=== PATIENT | female | born 1955 | race Caucasian/White ===

== ENCOUNTER 2018-03-10 16:33 | Emergency (ER) | payer MEDICAID, SELFPAY ==
[2018-03-10] VITALS (14 sets, daily range): BP systolic 150–162; BP diastolic 64–83; PULSE 66–70; RESP 16; TEMP 36–36.6; O2SAT 93–97
[2018-03-10] MEDS: Tranexamic Acid 1,000 MG/10 ML VIAL 1000 MG (16:45)
--- NOTE | 2018-03-10 16:48 | ED.GENADUL_ITS ---
Discharge Plan Disposition Patient Disposition: HOME Condition: Good Discharge Details Chief Complaint: Vascular Clinical Impression: Bleeding pseudoaneurysm of left brachiocephalic arteriovenous fistula Reason For Visit: FIONA Primary Care Provider: NONE,NONE ED Provider: Leonidas Liu Home Meds and New Rx's Prescriptions: No Action amlodipine 10 MG tablet 10 mg PO DAILY RF: 0 metoprolol succinate 25 MG tablet extended release 24 hr 25 mg PO DAILY RF: 0 Sodium Bicarbonate in D5w [Sodium Bicrb 150 Meq/1,150-D5w] 150 MEQ/1,150 ML Plast..Bag RF: 0 Discharge Instructions Instructions: Postoperative Bleeding (ED) Additional Instructions: If you notice any return of your bleeding please apply light pressure and return to the ER immediately for reevaluation. If you notice any worsening of your symptoms, or any new symptoms such as vomiting, diarrhea, fever, chills, shortness of breath, chest pain, numbness, weakness, or fainting , please return immediately to the emergency department for reevaluation. Please follow up with your primary care provider as soon as possible for reassessment and reevaluation. As always, it was a pleasure participating in your medical care today. Medical Decision Making This is a 63-year-old female who presents for bleeding AV fistula postdialysis. She had a tourniquet device applied roughly 30 minutes prior to arrival. Soon as the patient came we did remove the tourniquet device right away, no bleeding was noted. A small cotton swab with TXA was placed over the initial injection site. No significant pressure dressing was applied. We will get a basic laboratory workup to confirm that the patient's hemoglobin is stable , defer bleeding does not return she can be discharged home with close follow- up. Patient's laboratory workup has returned relatively benign, however she does have a slightly low hemoglobin at 8.6. She is asymptomatic with no tachycardia , significant pallor, or other complaints. Review of the patient's most recent laboratory workup from less than 2 weeks ago from her dialysis center reveals a hemoglobin of 7.4. Clearly she has actually improved and her hemoglobin levels and not decreased. I feel she can be safely discharged home with close follow- up. We discussed red flags which to return the patient understands. I have extensively reviewed the treatment plan and discharge instructions with the patient. I have addressed all patient concerns at this time. The patient was made aware of what symptoms to monitor for that would warrant a return to the emergency department. Discussed the plan with the patient, they demonstrate verbal understanding and agreement with our assessment and plan at this time. HPI General Date/Time Provider Initiated Documentation: 03/10/18 16:42 . HPI Narrative: This is a 63-year-old female with a past medical history of diabetes, and renal failure secondary to the diabetes on dialysis. She did have brain surgery years ago as well. She presents today with a complication from dialysis. She has left-sided AV fistula, and after dialysis she had some mild leaking from her AV fistula. It occurred for roughly 1 hour total after dialysis. A tourniquet device was placed by the dialysis clinic on her arm 30 minutes prior to arrival she was brought up here for further evaluation. Upon arrival the tourniquet device was removed and no bleeding is present. She did finish her dialysis. She is not on any blood thinners. She denies any lightheadedness, numbness tingling or weakness. She has no other complaints at this time. Related Data Home Medications Medication Instructions Recorded Confirmed Sodium Bicarbonate in D5w [Sodium 10/20/17 Bicrb 150 Meq/1,150-D5w] amlodipine 10 mg PO DAILY 10/20/17 10/20/17 metoprolol succinate 25 mg PO DAILY 10/20/17 10/20/17 Allergies Allergy/AdvReac Type Severity Reaction Status Date / Time No Known Allergies Allergy Unverified 10/20/17 12:04 General Stated Complaint: Vascular KAREN: 3 Review of Systems Review of Systems All systems reviewed & are unremarkable except as noted in HPI and below PFSH Social History Smoking/Tobacco Use Status: Current every day Exam Narrative Exam Narrative: 1.Const: Well-nourished, Well-developed, appearing stated age 2.Eyes: PERRL, no conjunctival injection, and symmetrical lids. 3.ENT: Atraumatic external nose and ears. Moist MM. Neck: Symmetric, trachea midline, No thyromegaly. 4.CVS: +S1/S2, No murmurs or gallops. Peripheral pulses 2+ and equal in all extremities. Brisk capillary refill in all extremities. 5.RESP: Unlabored respiratory effort. Clear to auscultation bilaterally. No wheezes rales or rhonchi 6.GI: Soft, Nontender/Nondistended, No hepatosplenomegaly. No guarding or rebound. 7.MSK: Normocephalic/Atraumatic, Extremities w/o deformity or ttp No cyanosis or clubbing, Normal movement of all extremities. Patient demonstrates a left- sided AV fistula. Tourniquet/pressure device was immediately removed, no bleeding is present. Injection site is present however there is no active bleeding or hematoma. Palpable thrill noted throughout the entire AV fistula. Distally to the fistula she demonstrates brisk capillary refill, normal radial and ulnar pulse at +2. No significant tenderness or abnormality. 8.Skin: Warm, Dry. No rashes or lesions. 9.Neuro: verification specialist II-XII grossly intact. Sensation grossly intact, no focal neurologic deficits. 10.Psych: (AAO) x3. Appropriate mood and affect Course Vital Signs Temperature 36 C L 03/10/18 16:34 Pulse 70 03/10/18 16:34 Respiratory Rate 16 03/10/18 16:34 Blood Pressure 150/83 H 03/10/18 16:34 Pulse Oximetry 95 03/10/18 16:34 Temperature 36 C L 03/10/18 16:34 Temperature Source Skin 03/10/18 16:34 Pulse 70 03/10/18 16:34 Respiratory Rate 16 03/10/18 16:34 Respiratory Effort 03/10/18 16:39 Blood Pressure 150/83 H 03/10/18 16:34 Blood Pressure Position Sitting 03/10/18 16:34 Pulse Oximetry 95 03/10/18 16:34 Oxygen Delivery Method Room Air 03/10/18 16:34 Oxygen Flow Rate 0 03/10/18 16:34
[2018-03-10 16:54] LABS: Abs Immature Grans 0.01 k/cumm (0.0-0.09); Absolute Basophil Count 0.04 k/cumm (0.0-0.2); Absolute Eosinophil Count 0.05 k/cumm (0.0-0.7); Absolute Lymphocyte Count 2.25 k/cumm (1.2-3.4); Absolute Monocyte Count 0.43 k/cumm (0.11-0.7); Absolute Neutrophil Count 2.53 k/cumm (1.2-6.7); Basophils % 0.8; Eosinophils % 0.9; HCT 27.5 % (36.0-46.0); HGB 8.6 g/dL (12.0-15.5); Immature Grans % 0.2; Lymphocytes % 42.4; Mean Corp. HGB Concentration 31.3 g/dL (32.0-36.0); Mean Corpuscular Hemoglobin 29.5 pg (27.0-33.0); Mean Corpuscular Volume 94.2 fL (80-95); Mean Platelet Volume 9.9 fL (8.0-11.0); Monocytes % 8.1; Neutrophils % 47.6; Platelet Count 217 x1000/uL (130-400); RBC 2.92 m/cumm (4.00-5.20); RBC Distribution Width 16.6 % (11.7-14.6); White Blood Cell Count 5.31 k/cumm (4.4-10.8)
[2018-03-10] MEDS: Gelatin SPONGE 12-7 MM PKT 1 EACH TP (17:08)
[2018-03-10 17:11] LABS: ALT 48 U/L (12-78); AST 22 U/L (15-37); Albumin 3.2 g/dL (3.4-5.0); Alkaline Phosphatase 87 U/L (46-116); Anion Gap 1.3 mmol/L (3-11); BUN 15 mg/dL (7-18); Bilirubin, Total 0.7 mg/dL (0.2-1.0); CO2 36.7 mmol/L (21.0-32.0); CREATININE 2.03 mg/dL (0.55-1.02); Calcium 8.6 mg/dL (8.5-10.1); Chloride 99 mmol/L (98-107); Estimated GFR 24.74 (mL/min/1.73m2); Glucose 119 mg/dL (70-100); Sodium 137 mmol/L (136-145); Total Protein 6.6 g/dL (6.4-8.2)
[2018-03-10 17:20] LABS: INR 1.1 (1.0-3.5); PTT Activated 22.4 sec (21.0-31.4); Prothrombin Time 10.3 sec (9.3-10.8)
== END 2018-03-10 17:45 | disposition home or self-care (01) ==
PROVIDERS: Emergency Provider Student in an Organized Health Care Education/Training Program
DX: T82.530A Leakage of surgically created arteriovenous fistula, initial encounter (principal); Y84.1 Kidney dialysis as the cause of abnormal reaction of the patient, or of later complication, without mention of misadventure at the time of the procedure; Z99.2 Dependence on renal dialysis; E11.22 Type 2 diabetes mellitus with diabetic chronic kidney disease; N18.6 End stage renal disease; I12.0 Hypertensive chronic kidney disease with stage 5 chronic kidney disease or end stage renal disease
CPT/HCPCS: 80053; 99283; 85025; 85610; 85730

== ENCOUNTER 2018-07-18 11:47 | Emergency (ER) | payer MEDICAID, SELFPAY ==
[2018-07-18] VITALS (14 sets, daily range): BP systolic 157–165; BP diastolic 83–92; PULSE 74–81; RESP 14–25; TEMP 36; O2SAT 95–98
--- NOTE | 2018-07-18 11:51 | DI.CT_ITS ---
SYMPTOM/DIAGNOSIS: FALL, HIT HEAD, HO ANEURYSM CTA HEAD AND NECK: CT angiography was performed with multi slice acquisition and multi planar and 3D reconstruction. CTA neck: There are no priors for comparison. There is a moderate size right and large left pleural effusion noted. The visualized lung brown are otherwise clear. The common carotid arteries are patent. No evidence of significant stenosis, dissection or occlusion. The external carotid arteries are unremarkable without evidence of occlusion, dissection or significant stenosis. There is mild atherosclerosis seen in the origins of both internal carotid arteries but no evidence of occlusion or dissection seen. No significant stenosis is present. The vertebral arteries are patent. The right vertebral artery appears dominant. No evidence of dissection or occlusion is seen. No significant stenosis is present. IMPRESSION: 1. No significant arterial stenosis or occlusion. 2. Bilateral pleural effusions with a moderate right and large left effusion present. CTA HEAD: CT angiography was performed with multi slice acquisition and multi planar and 3D reconstruction. There is atherosclerosis of the intracranial portion of the internal carotid artery but no occlusion or aneurysm is seen. No significant stenosis is present. On the left the anterior cerebral artery, middle cerebral artery and posterior cerebral artery all appear patent without evidence of aneurysm, occlusion or significant stenosis. There is streak artifact from the right sided aneurysm clips. The right anterior cerebral, middle cerebral and posterior cerebral arteries appear patent. The vertebral arteries are patent without evidence of dissection, aneurysm or significant stenosis. No occlusion is seen. The right vertebral artery is dominant. The basilar artery appears grossly unremarkable. IMPRESSION: 1. Right sided aneurysm clips with prominent streak artifact. 2. No significant stenosis or occlusion.
--- NOTE | 2018-07-18 11:51 | DI.CT_ITS ---
SYMPTOM/DIAGNOSIS: FALL, HIT HEAD, H/O ANEURYSM CT BRAIN: Noncontrast. No priors. There are right sided aneurysm clips with prominent streak artifact present. There is cerebral atrophy. Areas of decreased attenuation are seen in the white matter consistent with small vessel ischemic disease. The ventricles are intact. The basilar cisterns are patent. There is no acute midline shift of mass effect. No intracranial hemorrhage is seen. There are findings of a prior right craniotomy. No skull fracture is identified. The visualized paranasal sinuses are clear. The mastoid air cells are well pneumatized. IMPRESSION: No acute intracranial process 2. Right sided aneurysm clips with streak artifact.
--- NOTE | 2018-07-18 11:55 | ED.GENADUL_ITS ---
Discharge Plan Disposition Patient Disposition: HOME Condition: Good Discharge Details Chief Complaint: Trauma Clinical Impression: Fall Reason For Visit: FIONA Primary Care Provider: None,None ED Provider: Leonidas Liu Home Meds and New Rx's Prescriptions: No Action amlodipine 10 MG tablet 10 mg PO DAILY RF: 0 metoprolol succinate 25 MG tablet extended release 24 hr 25 mg PO DAILY RF: 0 Sodium Bicarbonate in D5w [Sodium Bicrb 150 Meq/1,150-D5w] 150 MEQ/1,150 ML Plast..Bag RF: 0 Discharge Instructions Instructions: Fall Prevention (ED) Additional Instructions: If you notice any worsening of your symptoms, or any new symptoms such as vomiting, diarrhea, fever, chills, shortness of breath, chest pain, numbness, weakness, or fainting , please return immediately to the emergency department for reevaluation. Please follow up with your primary care provider as soon as possible for reassessment and reevaluation. As always, it was a pleasure participating in your medical care today. Medical Decision Making This is a pleasant 63-year-old female who presents for evaluation after a fall. She was walking to dialysis when she slipped and hit the back of her head. She denies loss of consciousness. Physical exam shows no signs of trauma, no neurologic abnormalities. She does have minimal C4 and C5 midline spinal tenderness but more so paraspinal tenderness bilaterally. No signs of neurologic deficit, no step-off sign in the midline, or other abnormalities. Fistula is intact, with a palpable thrill. We will get a CT scan of the head neck including a CT angios the head neck for evaluation of acute fracture or ble ed. I feel bleed is unlikely based on her current clinical disposition however because of her history and risk factors we will evaluate for this. CT head neck and CT angiogram negative for any acute process, bleed, or fracture. Patient is feeling well and is asked over 7 times if she can go at this point. I feel that this is appropriate. Repeat neurologic exam is normal and shows no significant abnormalities. Patient will be discharged back to dialysis for the remainder of dialysis. We discussed red flags which to return she understands I have extensively reviewed the treatment plan and discharge instructions with the patient. I have addressed all patient concerns at this time. The patient was made aware of what symptoms to monitor for that would warrant a return to the emergency department. Discussed the plan with the patient, they demonstrate verbal understanding and agreement with our assessment and plan at this time. FINDINGS: Brain: Central and cortical brain atrophy evident, appropriate for patient age. There is nonspecific periventricular low attenuation, likely microangiopathic disease. No acute intracranial hemorrhage. Ventricles: Normal. No ventriculomegaly. Bones/joints: Right temporal craniotomy. Sinuses: Visualized sinuses are unremarkable. No acute sinusitis. Mastoid air cells: Visualized mastoid air cells are unremarkable. No mastoid effusion. Soft tissues: Unremarkable. Vasculature: Right-sided aneurysm clips with prominent streak artifact. IMPRESSION: 1. No acute intracranial abnormality. 2. Right-sided aneurysm clips with prominent streak artifact. FINDINGS: Right internal carotid artery: Unremarkable. Intracranial segment is patent with no significant stenosis. No aneurysm. Right anterior cerebral artery: Numerous right-sided aneurysm clips with prominent streak artifact. Right MCA appears patent. Right middle cerebral artery: See Right Anterior Cerebral Artery Finding. Right posterior cerebral artery: Unremarkable. No occlusion or significant stenosis. No aneurysm. Right vertebral artery: Unremarkable. No occlusion or significant stenosis. No aneurysm. Left internal carotid artery: Unremarkable. Intracranial segment is patent with no significant stenosis. No aneurysm. Left anterior cerebral artery: Unremarkable. No occlusion or significant stenosis. No aneurysm. Left middle cerebral artery: Unremarkable. No occlusion or significant stenosis. No aneurysm. Left posterior cerebral artery: Unremarkable. No occlusion or significant stenosis. No aneurysm. Left vertebral artery: Unremarkable. No occlusion or significant stenosis. No aneurysm. Basilar artery: Unremarkable. No occlusion or significant stenosis. No aneurysm. IMPRESSION: 1. Numerous right-sided aneurysm clips with prominent streak artifact. Right MCA appears patent. 2. No significant stenosis or occlusion. FINDINGS: VASCULATURE: Right common carotid artery: Normal. No significant stenosis. No dissection or occlusion. Right internal carotid artery: Normal. Extracranial segment is patent with no significant stenosis. No dissection or occlusion. Right external carotid artery: Normal. No occlusion or significant stenosis. Right vertebral artery: Right vertebral artery dominant. Left common carotid artery: Normal. No significant stenosis. No dissection or occlusion. Left internal carotid artery: Normal. Extracranial segment is patent with no significant stenosis. No dissection or occlusion. Left external carotid artery: Normal. No occlusion or significant stenosis. Left vertebral artery: Normal. No significant stenosis. No dissection or occlusion. NECK: Bones/joints: No acute fracture. Soft tissues: Normal. No significant soft tissue swelling. Lungs: Moderate right and large left pleural effusions. IMPRESSION: 1. Moderate right and large left pleural effusions. 2. No significant stenosis or occlusion. COMMENT: Reference per NASCET criteria for degree of stenosis: Mild: <50% stenosis. Moderate: 50-69% stenosis. Severe: 70-94% stenosis. Near occlusion: 95-99% stenosis. Thank you for allowing us to participate in the care of your patient. Dictated and Authenticated by: Marlene Darnell MD [facility] General Date/Time Provider Initiated Documentation: 07/18/18 11:50 . HPI Narrative: This is a 63-year-old female with a past medical history of diabetes, renal failure on dialysis, as well as a brain aneurysm and surgery for this in the past. She presents today after a fall. She was on her way down to dialysis when she slipped on the ice and hit the back of her head. She denies loss of consciousness, she recalls the event. She does have some mild pain in her posterior occiput, as well as the back of her neck she denies any numbness, tingling, weakness, vision changes,. Nausea, vomiting or diarrhea. She is not on any blood thinners. She denies any other complaints or modifying factors at this time Related Data Home Medications Medication Instructions Recorded Confirmed Sodium Bicarbonate in D5w [Sodium 10/20/17 Bicrb 150 Meq/1,150-D5w] amlodipine 10 mg PO DAILY 10/20/17 07/18/18 metoprolol succinate 25 mg PO DAILY 10/20/17 07/18/18 Allergies Allergy/AdvReac Type Severity Reaction Status Date / Time No Known Allergies Allergy Unverified 07/18/18 12:06 General KAREN: 3 Review of Systems Review of Systems All systems reviewed & are unremarkable except as noted in HPI and below PFSH Social History Smoking and Tabacco status: Current every day Exam Narrative Exam Narrative: 1.Const: Well-nourished, Well-developed, appearing stated age 2.Eyes: PERRL, no conjunctival injection, and symmetrical lids. 3.ENT: Atraumatic external nose and ears. Moist MM. Neck: Symmetric, trachea midline, No thyromegaly. Patient demonstrates intact dentition with no signs of tooth avulsion or fracture, no signs of jaw deformity, no evidence of a LeFort's fracture, with an intact palate, nose and orbital region. There is no evidence of a nasal septal hematoma. No proptosis. Jaw closes symmetrically. Airway is clear. There is no evidence of raccoon eyes, decker sign, CSF rhinorrhea, mastoid tenderness, cranial crepitus, hemotympanum, exophthalmos, or hyphema. 4.CVS: +S1/S2, No murmurs or gallops. Peripheral pulses 2+ and equal in all extremities. Brisk capillary refill in all extremities. 5.RESP: Unlabored respiratory effort. Clear to auscultation bilaterally. No wheezes rales or rhonchi 6.GI: Soft, Nontender/Nondistended, No hepatosplenomegaly. No guarding or rebound. 7.MSK: Normocephalic/Atraumatic, Extremities w/o deformity or ttp No cyanosis or clubbing, Normal movement of all extremities. No midline tenderness to palpation over the TLS spine. Minimal midline tenderness over C4 and C5, however more so paraspinal tenderness bilaterally over these areas. Normal ROM in flexion, extension, side bend, and rotation. Patient has +5 out of 5 strength in the lower extremities in dorsiflexion and plantarflexion, knee flexion and extension, hip flexion and extension. There is +2 over 2 dorsalis pedis pulses bilaterally. There is normal sensation to the skin with light touch at the foot, knee, and hip. Normal saddle sensation. Good sensation over the deep sural nerve area bilaterally. Rectal exam deferred. Reflexes are +2 over 4 in the patellar reflex bilaterally. +5 out of 5 strength in the medial, ulnar, radial nerve distribution bilaterally in the hands as well as intact light touch sensation to these dermatomes on the hands 8.Skin: Warm, Dry. No rashes or lesions. 9.Neuro: freight engineer II-XII grossly intact. Sensation grossly intact, no focal neurologic deficits. All 6 cardinal planes of vision are fully intact. No evidence of rotatory or vertical nystagmus. The patient demonstrated a normal [id number], good dexterity. There was no evidence of dysdiadochokinesia. Patient was able to ambulate without difficulty. There was no wide-based gait. Romberg, and [id number] are both normal on testing. Sensation was intact bilaterally as well as muscle strength bilaterally for all extremities. Patient was able to verbalize butter cup with no slurring, or miss pronunciation. 10.Psych: (AAO) x3. Appropriate mood and affect
[2018-07-18 12:07] LABS: Abs Immature Grans 0.03 k/cumm (0.0-0.09); Absolute Basophil Count 0.03 k/cumm (0.0-0.2); Absolute Eosinophil Count 0.05 k/cumm (0.0-0.7); Absolute Lymphocyte Count 1.08 k/cumm (1.2-3.4); Absolute Monocyte Count 0.48 k/cumm (0.11-0.7); Basophils % 0.4; Eosinophils % 0.7; HCT 34.6 % (36.0-46.0); HGB 10.9 g/dL (12.0-15.5); Immature Grans % 0.4; Lymphocytes % 15.1; Mean Corp. HGB Concentration 31.5 g/dL (32.0-36.0); Mean Corpuscular Hemoglobin 29.6 pg (27.0-33.0); Mean Platelet Volume 9.1 fL (8.0-11.0); Monocytes % 6.7; Neutrophils % 76.7; Platelet Count 179 x1000/uL (130-400); RBC 3.68 m/cumm (4.00-5.20); RBC Distribution Width 20.4 % (11.7-14.6); White Blood Cell Count 7.17 k/cumm (4.4-10.8)
[2018-07-18 12:23] LABS: PTT Activated 22.5 sec (21.0-31.4); Prothrombin Time 10.4 sec (9.3-11.0)
[2018-07-18 12:40] LABS: Diff Comment RBC Morph Reviewed; Macrocytosis 1+; Microcytosis 1+
[2018-07-18] MEDS: Omnipaque 350 MG/ML 100 ML BTL IJ ×2 (12:42→12:43)
[2018-07-18] MEDS: Normal Saline Flush 10 ML SYR IVP (12:44)
--- NOTE | 2018-07-18 13:28 | DI.VRAD_ITS ---
EXAM: CT Head Without Contrast EXAM DATE/TIME: 07/18/2018 11:52 AM CLINICAL HISTORY: 63 years old, female; Signs and symptoms; Other: Fall, hit head, HX of aneurysm TECHNIQUE: Axial computed tomography images of the head/brain without contrast. All CT scans at this facility use at least one of these dose optimization techniques: automated exposure control; mA and/or kV adjustment per patient size (includes targeted exams where dose is matched to clinical indication); or iterative reconstruction. Coronal and sagittal reformatted images were created and reviewed. COMPARISON: No relevant prior studies available. FINDINGS: Brain: Central and cortical brain atrophy evident, appropriate for patient age. There is nonspecific periventricular low attenuation, likely microangiopathic disease. No acute intracranial hemorrhage. Ventricles: Normal. No ventriculomegaly. Bones/joints: Right temporal craniotomy. Sinuses: Visualized sinuses are unremarkable. No acute sinusitis. Mastoid air cells: Visualized mastoid air cells are unremarkable. No mastoid effusion. Soft tissues: Unremarkable. Vasculature: Right-sided aneurysm clips with prominent streak artifact. IMPRESSION: 1. No acute intracranial abnormality. 2. Right-sided aneurysm clips with prominent streak artifact. Dictated and Authenticated by: Marlene Darnell MD. Ordering:ALBIN Lauren MD
--- NOTE | 2018-07-18 13:28 | DI.VRAD_ITS ---
EXAM: CT Angiography Head With Contrast EXAM DATE/TIME: 07/18/2018 11:52 AM CLINICAL HISTORY: 63 years old, female; Signs and symptoms; Other: Fall, hit head, HX of aneurysm; Patient HX: Patient has history of aneurysm with clips TECHNIQUE: Axial computed tomographic angiography images of the head with intravenous contrast using CT angiography protocol. All CT scans at this facility use at least one of these dose optimization techniques: automated exposure control; mA and/or kV adjustment per patient size (includes targeted exams where dose is matched to clinical indication); or iterative reconstruction. MIP reconstructed images were created and reviewed. CONTRAST: 170 ml of omnipaque 350 administered intravenously. COMPARISON: CT Private^HEAD ROUTINE (Adult) 07/18/2018 12:08 PM FINDINGS: Right internal carotid artery: Unremarkable. Intracranial segment is patent with no significant stenosis. No aneurysm. Right anterior cerebral artery: Numerous right-sided aneurysm clips with prominent streak artifact. Right MCA appears patent. Right middle cerebral artery: See Right Anterior Cerebral Artery Finding. Right posterior cerebral artery: Unremarkable. No occlusion or significant stenosis. No aneurysm. Right vertebral artery: Unremarkable. No occlusion or significant stenosis. No aneurysm. Left internal carotid artery: Unremarkable. Intracranial segment is patent with no significant stenosis. No aneurysm. Left anterior cerebral artery: Unremarkable. No occlusion or significant stenosis. No aneurysm. Left middle cerebral artery: Unremarkable. No occlusion or significant stenosis. No aneurysm. Left posterior cerebral artery: Unremarkable. No occlusion or significant stenosis. No aneurysm. Left vertebral artery: Unremarkable. No occlusion or significant stenosis. No aneurysm. Basilar artery: Unremarkable. No occlusion or significant stenosis. No aneurysm. IMPRESSION: 1. Numerous right-sided aneurysm clips with prominent streak artifact. Right MCA appears patent. 2. No significant stenosis or occlusion. EXAM: CT Angiography Neck With Contrast EXAM DATE/TIME: 07/18/2018 11:52 AM CLINICAL HISTORY: 63 years old, female; Signs and symptoms; Other: Fall, hit head, HX of aneurysm; Patient HX: Patient has history of aneurysm with clips TECHNIQUE: Axial computed tomographic angiography images of the neck with intravenous contrast using CT angiography protocol. All CT scans at this facility use at least one of these dose optimization techniques: automated exposure control; mA and/or kV adjustment per patient size (includes targeted exams where dose is matched to clinical indication); or iterative reconstruction. MIP reconstructed images were created and reviewed. CONTRAST: 170 ml of omnipaque 350 administered intravenously. COMPARISON: CT Private^HEAD ROUTINE (Adult) 07/18/2018 12:08 PM FINDINGS: VASCULATURE: Right common carotid artery: Normal. No significant stenosis. No dissection or occlusion. Right internal carotid artery: Normal. Extracranial segment is patent with no significant stenosis. No dissection or occlusion. Right external carotid artery: Normal. No occlusion or significant stenosis. Right vertebral artery: Right vertebral artery dominant. Left common carotid artery: Normal. No significant stenosis. No dissection or occlusion. Left internal carotid artery: Normal. Extracranial segment is patent with no significant stenosis. No dissection or occlusion. Left external carotid artery: Normal. No occlusion or significant stenosis. Left vertebral artery: Normal. No significant stenosis. No dissection or occlusion. NECK: Bones/joints: No acute fracture. Soft tissues: Normal. No significant soft tissue swelling. Lungs: Moderate right and large left pleural effusions. IMPRESSION: 1. Moderate right and large left pleural effusions. 2. No significant stenosis or occlusion. COMMENT: Reference per NASCET criteria for degree of stenosis: Mild: <50% stenosis. Moderate: 50-69% stenosis. Severe: 70-94% stenosis. Near occlusion: 95-99% stenosis. Dictated and Authenticated by: Marlene Darnell MD. Ordering:ALBIN Lauren MD
== END 2018-07-18 13:53 | disposition home or self-care (01) ==
PROVIDERS: Emergency Provider Student in an Organized Health Care Education/Training Program
DX: R51 Headache (principal); W00.0XXA Fall on same level due to ice and snow, initial encounter; E11.22 Type 2 diabetes mellitus with diabetic chronic kidney disease; N18.6 End stage renal disease; Z99.2 Dependence on renal dialysis; Z95.828 Presence of other vascular implants and grafts
CPT/HCPCS: 36415; 70496; 70498; 99285; 70450; 85025; 85610; 85730; 99284; J3490; L0172